=== PATIENT | male | born 1975 | race Caucasian/White ===

== ENCOUNTER 2016-11-23 09:20 | Emergency (ER) | payer SELFPAY ==
[2016-11-23 09:28] VITALS: BP 127/85
[2016-11-23] MEDS ORDERED: Tetracaine 0.5% OPTH.SOL 4 ML* 1 DROP BTL RIGHT EYE ONE (09:38)
[2016-11-23] MEDS ORDERED: Eye Irrigation Solution 30 ML BOTTLE RIGHT EYE ONE (09:45)
[2016-11-23] MEDS ORDERED: Fluorescein Sodium TOPICAL* 1 MG TEST OPHTHALMIC ONE (09:46)
--- NOTE | 2016-11-23 09:48 | ED ---
Throat Pain/Nasal Congestion - HPI Summary HPI Summary: 40M presents with right eye pain. He states last night he was working on his tire. He felt something go between his eye glasses and his eye. He states that is feels like a cornea abrasion that he had in the past. He states the area is very sensitive to light. He states that he has been having clear drainage from his eye. He does not wear contact or glasses. He has taken ibuprofen for pain. His pain is an 8/10. He states around his eye feels swollen. - History of Current Complaint Chief Complaint: UCEye Time Seen by Provider: 11/23/16 09:31 - Allergies/Home Medications Allergies/Adverse Reactions: Allergies Allergy/AdvReac Type Severity Reaction Status Date / Time No Known Allergies Allergy Verified 11/23/16 09:28 PMH/Surg Hx/FS Hx/Imm Hx Endocrine/Hematology History: Denies: Hx Diabetes, Hx Thyroid Disease Cardiovascular History: Denies: Hx Hypertension Respiratory History: Denies: Hx Asthma, Hx Chronic Obstructive Pulmonary Disease (COPD) GI History: Denies: Hx Ulcer Musculoskeletal History: Denies: Hx Osteoporosis - Surgical History Surgery Procedure, Year, and Place: NECK SURGERY 07/2011, OPEN HEART SURGERY AN (TWICE), FINGER SURGERY (STEEL PLATE), T&A, HERNIA SURGERY (RLQ), DEVIATED SEPTUM Infectious Disease History: No Infectious Disease History: Denies: Hx Hepatitis, Hx Human Immunodeficiency Virus (HIV), Traveled Outside the [place] in Last 30 Days - Family History Known Family History: Positive: Cardiac Disease - Social History Alcohol Use: Occasionally Substance Use Type: Reports: None Smoking Status (MU): Heavy Every Day Tobacco Smoker Type: Cigarettes Amount Used/How Often: 1/2 ppd Length of Time of Smoking/Using Tobacco: 25 Years Have You Smoked in the Last Year: Yes Review of Systems Negative: Fever Positive: Photophobia, Drainage, Erythema Negative: Shortness Of Breath All Other Systems Reviewed And Are Negative: Yes Physical Exam Triage Information Reviewed: Yes Vital Signs On Initial Exam: Initial Vitals Temp Pulse Resp BP Pulse Ox 98.6 F 60 16 127/85 100 11/23/16 09:22 11/23/16 09:22 11/23/16 09:22 11/23/16 09:22 11/23/16 09:22 Vital Signs Reviewed: Yes Appearance: Positive: Well-Appearing Skin: Positive: Warm, Dry Head/Face: Positive: Normal Head/Face Inspection Eyes: Positive: EOMI, KINGS, Conjunctiva Inflammed, Other: - 4mm by 2mm area of uptake at 2 position on fluorscein exam ENT: Positive: Normal ENT inspection, Pharynx normal, TMs normal Respiratory/Lung Sounds: Positive: Clear to Auscultation, Breath Sounds Present Cardiovascular: Positive: Normal, RRR Procedures - Eye Procedure Alcaine Drops Administered: Yes - fluorscein stain shows 4mm by 2mm area of uptake at 2o clock position Diagnostics - Vital Signs Vital Signs Temp Pulse Resp BP Pulse Ox 11/23/16 09:22 98.6 F 60 16 127/85 100 - Laboratory Lab Statement: Any lab studies that have been ordered have been reviewed, and results considered in the medical decision making process. EENT Course/Dx - Course Course Of Treatment: 40M presents with right eye pain. He states last night he was working on his tire. He felt something go between his eye glasses and his eye. He states that is feels like a cornea abrasion that he had in the past. He states the area is very sensitive to light. He states that he has been having clear drainage from his eye. He does not wear contact or glasses. He has taken ibuprofen for pain. His pain is an 8/10. He states around his eye feels swollen. on exam conjunctiva injected. no foreign body seen. 4mm by 2mm around of uptake on fluroscein exam. will treat with polytrim and gave cyclogyl since patient is very photosensitive. patient declined any pain medication at this time. patient understands and agrees with plan. - Differential Diagnoses Differential Diagnoses: Conjunctivitis, Corneal Abrasion, Foreign Body - Diagnoses Provider Diagnoses: Corneal abrasion, right Discharge - Discharge Plan Condition: Good Disposition: HOME Prescriptions: Cyclopentolate 1% OPTH.ANKIT* [Cyclogyl 1% OPTH.ANKIT*] 1 drop RIGHT EYE DAILY #1 btl Polymyx/Trimethoprim OPTH* [Polytrim OPHTH*] 1 drop RIGHT EYE QID #1 btl Patient Education Materials: Corneal Abrasion (ED) Referrals: [facility] [place] [facility] [Outside] Efren Morrison MD [Medical Doctor] - Additional Instructions: Place 1 drop in eye 4 times a day for 5 days Use cycogly one drop once a day for eye spasms Use artificial tears or saline to rinse eye for symptomatic relief Take Tylenol or ibuprofen for pain Follow up with ophthalmology if no improvement in 5 days Return to ED if develop any new or worsening symptoms
== END 2016-11-23 10:12 | disposition home or self-care (01) ==
LOC: UCEAST 09:20
DX: S05.01XA Injury of conjunctiva and corneal abrasion without foreign body, right eye, initial encounter (principal); X58.XXXA Exposure to other specified factors, initial encounter; Y93.89 Activity, other specified; Y92.9 Unspecified place or not applicable; F17.210 Nicotine dependence, cigarettes, uncomplicated
CPT/HCPCS: 99212; A9270-GY; G0463

== ENCOUNTER 2017-03-04 15:09 | Emergency (ER) | payer SELFPAY ==
[2017-03-04 15:25] VITALS: BP 116/74
--- NOTE | 2017-03-04 15:44 | UC ---
Knee Pain HPI - HPI Summary HPI Summary: Pt reports standing on step ladder at work ~ 2 feet off the ground, pt reports losing balance, jumping off step ladder and twisting left knee on steel shelf as he was falling down. pt c/o left knee pain that is posterior, from just above knee, to below knee as well as generalized knee pain. - History of Current Complaint Chief Complaint: UCLowerExtremity Stated Complaint: LEFT KNEE INJ/WC Time Seen by Provider: 03/04/17 15:30 Hx Obtained From: Patient Onset/Duration: Sudden Onset, Lasting Hours, Still Present Severity Initially: Moderate Severity Currently: Mild Character: Dull, Aching, Burning Aggravating Factor(s): Movement, Weight Bearing Alleviating Factor(s): Rest, Position Associated Signs And Symptoms: Positive: Weakness Able to Bear Weight: Yes - Risk Factors Gout Risk Factor: Male - Allergies/Home Medications Allergies/Adverse Reactions: Allergies Allergy/AdvReac Type Severity Reaction Status Date / Time No Known Allergies Allergy Verified 03/04/17 15:25 Home Medications: Home Medications Acetaminophen [Acetaminophen Extra Stren] 1,000 mg PO Q6H PRN 03/04/17 [History Confirmed 03/04/17] PMH/Surg Hx/FS Hx/Imm Hx Previously Healthy: Yes - Surgical History Surgical History: Yes Surgery Procedure, Year, and Place: NECK SURGERY 07/2011, OPEN HEART SURGERY AN (TWICE), FINGER SURGERY (STEEL PLATE), T&A, HERNIA SURGERY (RLQ), DEVIATED SEPTUM - Family History Known Family History: Positive: Cardiac Disease - Social History Occupation: Employed Full-time Lives: With Family Alcohol Use: Weekly Substance Use Type: None Smoking Status (MU): Heavy Every Day Tobacco Smoker Type: Cigarettes Amount Used/How Often: 1 ppd Length of Time of Smoking/Using Tobacco: 21 Years Have You Smoked in the Last Year: Yes Household Exposure Type: Cigarettes - Immunization History Most Recent Influenza Vaccination: Not the 2013/2014 Season Most Recent Tetanus Shot: 2009 Vaccination Up to Date: No Review of Systems Constitutional: Negative Skin: Negative Eyes: Negative ENT: Negative Respiratory: Negative Cardiovascular: Negative Gastrointestinal: Negative Genitourinary: Negative Motor: Decreased ROM - left knee Neurovascular: Negative Musculoskeletal: Arthralgia, Decreased ROM - left knee, Myalgia Neurological: Negative Psychological: Negative Is Patient Immunocompromised?: No All Other Systems Reviewed And Are Negative: Yes Physical Exam Triage Information Reviewed: Yes Appearance: Well-Appearing Vital Signs: Initial Vital Signs Temp 98.9 F 03/04/17 15:17 Pulse 86 03/04/17 15:17 Resp 20 03/04/17 15:17 BP 116/74 03/04/17 15:17 Pulse Ox 99 03/04/17 15:17 Vital Signs Reviewed: Yes ENT Exam: Normal Dental Exam: Normal Neck exam: Normal Respiratory Exam: Normal Cardiovascular Exam: Normal Musculoskeletal Exam: Other Musculoskeletal: Positive: ROM Limited @ - left knee, Other: - negative drawer, sallie negative, tenderness at joint space bilateral and with ROM Neurological Exam: Normal Psychological Exam: Normal Skin Exam: Normal Knee Pain Course/Dx - Differential Dx/Diagnosis Differential Diagnosis/HQI/PQRI: Internal Derangement Of Knee, Sprain, Strain Provider Diagnoses: left knee strain. left knee sprain Discharge - Discharge Plan Condition: Stable Disposition: HOME Prescriptions: Ibuprofen TAB* [Motrin TAB* 600 MG] 600 mg PO Q8H PRN #30 tab PRN Reason: Pain Patient Education Materials: How to Stop Smoking (ED), Knee Sprain (ED), Knee Pain (ED) Forms: *Work Release Referrals: Yessi Bruner MD [Medical Doctor] - If Needed No Primary Care Phys,NOPCP [Primary Care Provider] - If Needed
== END 2017-03-04 15:56 | disposition home or self-care (01) ==
LOC: UCCORT 15:09
DX: S86.912A Strain of unspecified muscle(s) and tendon(s) at lower leg level, left leg, initial encounter (principal); S83.92XA Sprain of unspecified site of left knee, initial encounter; W11.XXXA Fall on and from ladder, initial encounter; Y92.9 Unspecified place or not applicable; F17.210 Nicotine dependence, cigarettes, uncomplicated
CPT/HCPCS: 99212; G0463

== ENCOUNTER 2018-12-01 09:56 | Emergency (ER) | payer SELFPAY ==
[2018-12-01 10:08] VITALS: BP 121/86
--- NOTE | 2018-12-01 10:46 | UC ---
Skin Complaint HPI - HPI Summary HPI Summary: 43-year-old male comes in with a chief complaint of an infected wound on his right foot. Patient works all day with his boots on and he notices morning the top of his toes on his right foot had abrasions on them and they were painful. He noticed red streaking coming up the inside of the right leg. He has some chills. Denies any history of MRSA. Reports he's had an infection like this before and he was treated with cephalexin. - History of Current Complaint Chief Complaint: UCSkin Time Seen by Provider: 12/01/18 10:35 Stated Complaint: WOUND ON TOE LINE UP LEG Pain Intensity: 5 - Allergy/Home Medications Allergies/Adverse Reactions: Allergies Allergy/AdvReac Type Severity Reaction Status Date / Time No Known Allergies Allergy Verified 12/01/18 10:08 PMH/Surg Hx/FS Hx/Imm Hx Previously Healthy: Yes - RT LEG CELLULITIS - Surgical History Surgical History: Yes Surgery Procedure, Year, and Place: NECK SURGERY 07/2011, OPEN HEART SURGERY AN [facility]ANT (TWICE), FINGER SURGERY (STEEL PLATE), T&A, HERNIA SURGERY (RLQ), DEVIATED SEPTUM - Family History Known Family History: Positive: Cardiac Disease - Social History Alcohol Use: Weekly Substance Use Type: None Smoking Status (MU): Heavy Every Day Tobacco Smoker Type: Cigarettes Amount Used/How Often: 1 ppd Length of Time of Smoking/Using Tobacco: 21 Years Have You Smoked in the Last Year: Yes Household Exposure Type: Cigarettes - Immunization History Most Recent Influenza Vaccination: Not the 2013/2014 Season Most Recent Tetanus Shot: 2009 Vaccination Up to Date: No Review of Systems All Other Systems Reviewed And Are Negative: Yes Constitutional: Positive: Chills Skin: Positive: Other - SEE HPI Eyes: Positive: Negative ENT: Positive: Negative Respiratory: Positive: Negative Cardiovascular: Positive: Negative Gastrointestinal: Positive: Negative Motor: Positive: Negative Neurovascular: Positive: Negative Musculoskeletal: Positive: Negative Neurological: Positive: Negative Psychological: Positive: Negative Is Patient Immunocompromised?: No Physical Exam Triage Information Reviewed: Yes Appearance: Well-Appearing, No Pain Distress, Well-Nourished Vital Signs: Initial Vital Signs Temp 100.9 F 12/01/18 10:04 Pulse 110 12/01/18 10:04 Resp 20 12/01/18 10:04 BP 121/86 12/01/18 10:04 Pulse Ox 100 12/01/18 10:04 Vital Signs Reviewed: Yes Eye Exam: Normal Eyes: Positive: Conjunctiva Clear Neck: Positive: Supple Respiratory: Positive: No respiratory distress Musculoskeletal: Positive: Strength Intact, ROM Intact Neurological: Positive: Alert, Muscle Tone Normal Psychological: Positive: Age Appropriate Behavior Skin: Positive: Other - Patient is an abrasion on the dorsal aspect of the distal right foot. Is erythema there is no drainage. There is an erythematous streak from that area coming up the medial aspect of the ankle into mid calf. Normal capillary refill. No sensation deficit. Course/Dx - Course Course Of Treatment: We'll treat with Keflex 500 mg by mouth 4 times a day. Patient reports she is up-to-date on his tetanus. We discussed the fact that the patient does have a fever here today and that if he got worse he is to go the emergency department for IV antibiotics. - Diagnoses Provider Diagnosis: Cellulitis of right lower leg Discharge ED - Sign-Out/Discharge Documenting (check all that apply): Patient Departure All imaging exams completed and their final reports reviewed: No Studies - Discharge Plan Condition: Stable Disposition: HOME Prescriptions: Cephalexin CAP* [Keflex CAP*] 500 mg PO QID #40 cap Mupirocin 1 applic TOPICAL BID #22 gm Patient Education Materials: Cellulitis (ED) Referrals: [facility] [Outside] [facility] [place] [facility] [Outside] Additional Instructions: FOLLOW UP WITH YOUR DOCTOR. GO TO THE EMERGENCY DEPARTMENT IF YOUR CONDITION WORSENS; SPREAD OF INFECTION, FEVER, YOU FEEL ILL OR ANY QUESTIONS OR CONCERNS. - Billing Disposition and Condition Condition: STABLE Disposition: Home
[2018-12-01] MEDS: Cephalexin CAP* 500 MG PO ONE ×2 (11:01→11:02)
[2018-12-01] MEDS: Ibuprofen TAB* 600 MG PO ONE (11:01)
== END 2018-12-01 11:05 | disposition home or self-care (01) ==
LOC: UCEAST 09:56
DX: L03.115 Cellulitis of right lower limb (principal); F17.210 Nicotine dependence, cigarettes, uncomplicated
CPT/HCPCS: 99213; A9270-GY; G0463

== ENCOUNTER 2019-05-08 20:01 | Emergency (ER) | payer SELFPAY ==
[2019-05-08 21:03] VITALS: BP 120/82
--- NOTE | 2019-05-08 21:16 | UC ---
Throat Pain/Nasal Souleymane HPI - HPI Summary HPI Summary: pt present to reporting sore throat x 2 days. PT states R>L pt with similar sx 3 weeks ago - nearly resolved and returne.d Pt staes fees full on right side with swallowing. No SOB no nasal congestion, PND. No rash Pt does chew tobacco. No smoke, vape No difficulty swallowing. No drooling, Pt is on no medications - History of Current Complaint Chief Complaint: UCGeneralIllness Stated Complaint: THROAT COMPLAINT Time Seen by Provider: 05/08/19 21:13 Hx Obtained From: Patient Severity: Mild Pain Intensity: 4 - Allergies/Home Medications Allergies/Adverse Reactions: Allergies Allergy/AdvReac Type Severity Reaction Status Date / Time No Known Allergies Allergy Verified 05/08/19 21:00 Home Medications: Home Medications Calcium Carbonate CHEW TAB* [Tums*] 4 tab PO ONCE 05/08/19 [History Confirmed ] Omeprazole CAP (NF) [Prilosec CAP* 20 MG] 20 mg PO DAILY 05/08/19 [History Confirmed 05/08/19] PMH/Surg Hx/FS Hx/Imm Hx Previously Healthy: Yes - Surgical History Surgical History: Yes Surgery Procedure, Year, and Place: NECK SURGERY 07/2011, OPEN HEART SURGERY AN (TWICE), FINGER SURGERY (STEEL PLATE), T&A, HERNIA SURGERY (RLQ), DEVIATED SEPTUM - Family History Known Family History: Positive: Cardiac Disease, Non-Contributory - Social History Occupation: Employed Full-time Lives: With Family Alcohol Use: Occasionally Substance Use Type: None Smoking Status (MU): Heavy Every Day Tobacco Smoker Type: Cigarettes Amount Used/How Often: 1 ppd Length of Time of Smoking/Using Tobacco: 21 Years Have You Smoked in the Last Year: Yes Household Exposure Type: Cigarettes - Immunization History Most Recent Influenza Vaccination: Not the 2013/2014 Season Most Recent Tetanus Shot: 2009 Vaccination Up to Date: No Review of Systems All Other Systems Reviewed And Are Negative: Yes Constitutional: Positive: Negative Skin: Positive: Negative Eyes: Positive: Negative ENT: Positive: Sore Throat Respiratory: Positive: Negative Cardiovascular: Positive: Negative Gastrointestinal: Positive: Negative Physical Exam - Summary Physical Exam Summary: Vital Signs Reviewed: Yes A+Ox3, no distress Eyes: Conjunctiva Clear, KINGS. EOM intact and full ENT: Hearing grossly normal TM x 2 clear, turbinates wnk Pt with mild erythema posterior pharynx. mmoist, uvula midline, right tonsil slightly > left ?exudate vs tonisl stone right tonsil inferior margin. no lesions to tongue, gum Neck: Positive: Supple, + submandibular LA R>L Respiratory: Positive: No respiratory distress, No accessory muscle use + CTA throughout no w/r Cardiovascular: RRR nl s1, s2 no m/r CBT <2 sec abd soft + BS nt/nd no guarding, no distension Musculoskeletal Exam: GALLEGOS x 4 without difficulty Strength Intact, ROM Intact Neurological: Positive: Alert, + sensation throughout Psychological: Positive: Normal Response To talent sourcing specialist Skin: Positive: no rash, no ecchymosis Triage Information Reviewed: Yes Vital Signs: Initial Vital Signs Temp 98.8 F 05/08/19 20:59 Pulse 87 05/08/19 20:59 Resp 18 05/08/19 20:59 BP 120/82 05/08/19 20:59 Pulse Ox 98 05/08/19 20:59 Throat Pain/Nasal Course/Dx - Course Course Of Treatment: PT presents to with sore throat x 2-3 days Pt with similar sx 3 weeks ago - nearly resolved painful swallowing with fullness, no difficulty swallowing On exam, no distress + submandibular LA mild Pt with erythema oropharyn, slightly enlarged right tonsile with tosillar stone or exudate strep neg pt does chew tobacco recommend gargle spit hydrate motrin.apap abx secretion precaution f/u with PCP for rechecj pt agreement and comfort with plan - Differential Dx/Diagnosis Provider Diagnosis: Pharyngitis Discharge ED - Sign-Out/Discharge Documenting (check all that apply): Patient Departure All imaging exams completed and their final reports reviewed: No Studies - Discharge Plan Condition: Stable Disposition: HOME Prescriptions: Amoxicillin PO (*) [Amoxicillin 500 MG CAP*] 500 mg PO Q12H #20 cap Famotidine 10 mg PO DAILY #14 tablet predniSONE 50 mg TAB [Deltasone 50 mg TAB] 50 mg PO DAILY #5 tab Patient Education Materials: Pharyngitis (ED) Referrals: [facility] [place] [facility] [Outside] No Primary Care Phys,NOPCP [Primary Care Provider] - Additional Instructions: - - Okay to alternate ibuprofen (Advil, Motrin) and Tylenol every 3 hours for pain. Take with food. Do NOT take for more than 4-5 days - Okay to gargle and spit warm salt water every 4 hours as needed for pain - Stay well hydrated - frequent sips of cold fluids will be soothing to your throat (popsicles, jello, ice cream, ice water). Avoid excess caffeine until your symptoms have resolved. -Throat infections are spread by oral secretions - do not share eating or drinking utensils until you symptoms are resolved. Clean items that may get your secretions such as cell phones, ipads, computer mouse, television remotes. Once you have been on antibiotics for 2 days, change your toothbrush and your pillowcase. - Take antibiotics and prednisone as prescribed until gone - humidify the air in the room where you sleep - boil water, run a hot steam shower, vaporizer, cups of water by heat register - Okay to take over the counter cough and decongestant medication -0 you have been given a medication to reduce stomach acid - take daily as prescribed - work to decrease cigarette smoking - Contact your doctor or the physician referral center to arrange a follow-up with a primary care provider - Billing Disposition and Condition Condition: STABLE Disposition: Home
[2019-05-08] MEDS ORDERED: Amoxicillin PO (*) 500 MG CAP PO ONE (21:54)
== END 2019-05-08 22:02 | disposition home or self-care (01) ==
LOC: UCCORT 20:01
DX: J02.9 Acute pharyngitis, unspecified (principal); Z95.1 Presence of aortocoronary bypass graft; F17.210 Nicotine dependence, cigarettes, uncomplicated
CPT/HCPCS: 87651; 99212; A9270-GY; G0463